=== PATIENT | female | born 1995 | race Two or more races ===

== ENCOUNTER 2019-10-17 16:44 | Inpatient (IN) | payer MEDICAID, OTHER ==
[~2019-10-17] VITALS: Ht 165.1 cm; Wt 53.7 kg
[2019-10-17] MEDS ORDERED: TRAZ-252 PO (19:28)
[2019-10-17] MEDS ORDERED: MIRT-89 PO (19:28)
[2019-10-17] MEDS ORDERED: HALOPERIDOL LACTATE 5 MG/ML VIAL IM ONE (21:00)
[2019-10-17] MEDS ORDERED: DiphenhydrAMINE HCL 50 MG/ML VIAL IM ONE (21:00)
[2019-10-17] MEDS ORDERED: LORazepam 2 MG/ML VIAL IM ONE (21:00)
[2019-10-17 22:34] LABS: BASOPHILS % (AUTO) 0.7 % (0.0-2.0); EOSINOPHILS % (AUTO) 2.6 % (1.0-6.0); HEMATOCRIT 36.8 % (36-46); HEMOGLOBIN 11.7 g/dL (12.0-16.0); LYMPHOCYTES # (AUTO) 2.5 K/uL (1.0-4.8); LYMPHOCYTES % (AUTO) 45.9 % (22.0-44.0); MEAN CORPUSCULAR HEMOGLOBIN 29.8 pg (26.0-34.0); MEAN CORPUSCULAR HGB CONC 31.7 G/dL (31.0-37.0); MEAN CORPUSCULAR VOLUME 94 fL (80-100); MONOCYTES # (AUTO) 0.5 K/uL (0.1-1.0); MONOCYTES % (AUTO) 8.3 % (2.0-9.0); NEUTROPHILS # (AUTO) 2.3 K/uL (1.8-7.7); NEUTROPHILS % (AUTO) 42.5 % (40.0-70.0); PLATELET COUNT (AUTO) 226 K/uL (150-450); RED BLOOD CELL COUNT(AUTO) 3.92 MIL/uL (4.00-5.20); RED CELL DISTRIBUTION WIDTH 15.2 % (11.5-14.5)
[2019-10-17 22:40] LABS: ANION GAP 9 mmol/L (8-16); CARBON DIOXIDE 27 mmol/L (22-29); CHLORIDE 102 mmol/L (98-107); CREATININE 0.78 mg/dL (0.60-1.30); GLOMERULAR FILTR. RATE CALC > 60 mL/min (>60); GLUCOSE,RANDOM 123 mg/dL (70-110); POTASSIUM 3.1 mmol/L (3.5-5.1); SODIUM SERUM 138 mmol/L (136-145); UREA NITROGEN, BLOOD 11 mg/dL (7-18)
[2019-10-17 22:52] LABS: ALANINE AMINOTRANSFERASE 450 U/L (12-78); ALBUMIN 3.3 g/dL (3.4-5.0); ALKALINE PHOSPHATASE 112 U/L (46-116); ASPARTATE AMINOTRANSFERASE 240 U/L (15-37); BILIRUBIN,TOTAL 0.6 mg/dL (0.1-1.0); HCG,QUANTITATIVE < 1 mIU/mL (0-6); TOTAL PROTEIN, SERUM 6.5 g/dL (6.4-8.2)
[2019-10-17] MEDS ORDERED: HALOPERIDOL 5 MG TABLET PO PRN (23:45)
[2019-10-17] MEDS ORDERED: LORazepam 2 MG TABLET PO PRN (23:45)
[2019-10-17] MEDS ORDERED: ZOLPIDEM TARTRATE 10 MG TABLET PO PRN (23:45)
[2019-10-18 03:04] LABS: CHOL/HDL RATIO 3.9 (3.9-5.7); CHOLESTEROL 162 mg/dL (131-200); HDL CHOLESTEROL 42 mg/dL (40-60); LDL CHOL (CALC.) 90 mg/dL (0-130); TRIGLYCERIDES 149 mg/dL (15-150)
[2019-10-18 16:54] VITALS: BP 120/75
[2019-10-18 19:54] VITALS: BP 120/75
[2019-10-18] MEDS ORDERED: PNEUMOCOCCAL VACCINE POLYVALENT 0.5 ML VIAL [PPSV23] IM ONE (20:30)
[2019-10-19 09:31] VITALS: BP 100/55
[2019-10-19] MEDS: FLUoxetine HCL 20 MG CAPSULE PO SCH (12:46)
[2019-10-19] MEDS: OLANZapine 5 MG TABLET PO SCH ×2 (12:46→17:38)
[2019-10-19] MEDS: GABAPENTIN 300 MG CAPSULE PO SCH ×2 (12:46→17:38)
[2019-10-19] MEDS ORDERED: ALBUTEROL SULFATE HFA 90 MCG/PUFF 8 GM INHALER IH PRN (14:45)
[2019-10-19] MEDS ORDERED: LOPERAMIDE HCL 2 MG CAPSULE PO PRN (14:45)
[2019-10-19] MEDS ORDERED: MAG HYDROX/AL HYDROX/SIMETH ES 30 ML SUSPENSION UDCUP PO PRN (14:45)
[2019-10-19] MEDS ORDERED: PETROLATUM,WHITE 28 GM JELLY TP PRN (14:45)
[2019-10-19] MEDS ORDERED: DOCUSATE SODIUM 100 MG CAPSULE PO PRN (14:45)
[2019-10-19] MEDS ORDERED: ONDANSETRON HCL 4 MG TABLET PO PRN (14:45)
[2019-10-19] MEDS ORDERED: CloNIDine HCL 0.1 MG TABLET PO PRN (14:45)
[2019-10-19] MEDS ORDERED: GuaiFENesin/D-METHORPHAN [SUGAR-FREE] 200-20MG/10 ML SYRUP UDCUP PO PRN (14:45)
[2019-10-19] MEDS ORDERED: IBUPROFEN 400 MG TABLET PO PRN (14:45)
[2019-10-19] MEDS ORDERED: NICOTINE 14 MG/24 HOUR PATCH TD PRN (14:45)
[2019-10-19] MEDS ORDERED: MAGNESIUM HYDROXIDE SUSPENSION 30 ML UDCUP PO PRN (14:45)
[2019-10-19] MEDS ORDERED: ACETAMINOPHEN 325 MG TABLET PO PRN (14:45)
[2019-10-19 19:40] VITALS: BP 108/62
[2019-10-19] MEDS ORDERED: POTASSIUM CHLORIDE 20 MEQ ER TABLET PO ONE (20:15)
[2019-10-19] MEDS: TraZODone HCL 50 MG TABLET PO SCH (21:31)
[2019-10-20 09:05] VITALS: BP 122/69
[2019-10-20] MEDS: GABAPENTIN 300 MG CAPSULE PO SCH ×2 (11:43→16:04)
[2019-10-20] MEDS: OLANZapine 5 MG TABLET PO SCH ×2 (11:43→16:04)
[2019-10-20] MEDS: FLUoxetine HCL 20 MG CAPSULE PO SCH (11:43)
[2019-10-20 16:00] VITALS: BP 116/81
[2019-10-20] MEDS: TraZODone HCL 50 MG TABLET PO SCH (21:16)
[2019-10-21 09:24] VITALS: BP 137/78
[2019-10-21] MEDS: GABAPENTIN 300 MG CAPSULE PO SCH ×2 (09:52→16:22)
[2019-10-21] MEDS: OLANZapine 10 MG TABLET PO SCH ×2 (09:52→16:22)
[2019-10-21] MEDS: FLUoxetine HCL 20 MG CAPSULE PO SCH (09:52)
[2019-10-21 16:51] VITALS: BP 119/78
[2019-10-21] MEDS: TraZODone HCL 50 MG TABLET PO SCH (20:31)
[2019-10-22 08:00] VITALS: BP 128/84
[2019-10-22] MEDS ORDERED: GABA-1181 PO (09:26)
[2019-10-22] MEDS ORDERED: OLAN10TA3 PO (09:26)
[2019-10-22] MEDS ORDERED: FLUO-191 PO (09:26)
[2019-10-22] MEDS: OLANZapine 10 MG TABLET PO SCH (09:33)
[2019-10-22] MEDS: GABAPENTIN 300 MG CAPSULE PO SCH (09:33)
[2019-10-22] MEDS: FLUoxetine HCL 20 MG CAPSULE PO SCH (09:33)
== END 2019-10-22 12:40 | DRG 750 ==
LOC: EMS 16:52 → EDBD 10-18 14:37 → 3EI 10-18 14:37
PROVIDERS: ADMIT Psychiatry & Neurology Psychiatry; ATTEND Psychiatry & Neurology Psychiatry
DX: F20.9 Schizophrenia, unspecified (principal); F43.10 Post-traumatic stress disorder, unspecified; F17.200 Nicotine dependence, unspecified, uncomplicated; E87.6 Hypokalemia; D64.9 Anemia, unspecified
CPT/HCPCS: 84132; 99291; G0480

== ENCOUNTER 2020-10-17 18:31 | Inpatient (IN) | payer MEDICAID ==
[~2020-10-17] VITALS: Ht 165.1 cm; Wt 74.5 kg
[~2020-10-17 18:31] MED LIST: OLAN10TA74 PO
[2020-10-17] MEDS ORDERED: ZOLPIDEM TARTRATE 10 MG TABLET PO PRN (20:15)
[2020-10-17] MEDS ORDERED: HALOPERIDOL 5 MG TABLET PO PRN (20:15)
[2020-10-17 20:24] LABS: GLUCOMETER DEV NAME(LOC) POC.BV
[2020-10-17 20:45] VITALS: BP 124/74
[2020-10-17] MEDS: LORazepam 2 MG TABLET PO PRN (21:29)
[2020-10-18 00:28] VITALS: BP 118/70
[2020-10-18 07:11] LABS: BASOPHILS % (AUTO) 0.7 % (0.0-2.0); EOSINOPHILS % (AUTO) 3.9 % (1.0-6.0); HEMATOCRIT 39.8 % (36-46); HEMOGLOBIN 13.3 g/dL (12.0-16.0); LYMPHOCYTES # (AUTO) 2.3 K/uL (1.0-4.8); LYMPHOCYTES % (AUTO) 37.5 % (22.0-44.0); MEAN CORPUSCULAR HGB CONC 33.3 G/dL (31.0-37.0); MEAN CORPUSCULAR VOLUME 90 fL (80-100); MONOCYTES # (AUTO) 0.6 K/uL (0.1-1.0); NEUTROPHILS # (AUTO) 2.9 K/uL (1.8-7.7); NEUTROPHILS % (AUTO) 47.9 % (40.0-70.0); PLATELET COUNT (AUTO) 210 K/uL (150-450); RED BLOOD CELL COUNT(AUTO) 4.42 MIL/uL (4.00-5.20); RED CELL DISTRIBUTION WIDTH 12.7 % (11.5-14.5)
[2020-10-18 07:26] LABS: HEMOGLOBIN A1C 4.9 % (3.8-5.6)
[2020-10-18 07:41] LABS: ALANINE AMINOTRANSFERASE 94 U/L (12-78); ALBUMIN 3.8 g/dL (3.4-5.0); ALKALINE PHOSPHATASE 51 U/L (46-116); ANION GAP 9 mmol/L (8-16); ASPARTATE AMINOTRANSFERASE 140 U/L (15-37); BILIRUBIN,TOTAL 0.8 mg/dL (0.1-1.0); CALCIUM, TOTAL 8.6 mg/dL (8.8-10.5); CARBON DIOXIDE 27 mmol/L (22-29); CHLORIDE 101 mmol/L (98-107); CHOL/HDL RATIO 3.4 (3.9-5.7); CHOLESTEROL 134 mg/dL (131-200); FREE T4 (FREE THYROXINE) 1.92 ng/dL (0.76-1.46); GLOMERULAR FILTR. RATE CALC > 60 mL/min (>60); GLUCOSE,RANDOM 94 mg/dL (70-110); HCG,QUANTITATIVE < 1 mIU/mL (0-6); HDL CHOLESTEROL 40 mg/dL (40-60); LDL CHOL (CALC.) 87 mg/dL (0-130); POTASSIUM 3.5 mmol/L (3.5-5.1); SODIUM SERUM 137 mmol/L (136-145); THYROID STIMULATING HORMONE 0.54 uIU/mL (0.36-3.74); TOTAL PROTEIN, SERUM 6.8 g/dL (6.4-8.2); TRIGLYCERIDES 35 mg/dL (15-150); UREA NITROGEN, BLOOD 7 mg/dL (7-18)
[2020-10-18 08:08] VITALS: BP 99/65
[2020-10-18] MEDS: QUEtiapine FUMARATE 25 MG TABLET PO SCH ×2 (11:58→16:54)
[2020-10-18 16:30] VITALS: BP 104/60
[2020-10-19 04:20] VITALS: BP 101/62
[2020-10-19] MEDS: QUEtiapine FUMARATE 25 MG TABLET PO SCH ×2 (08:17→16:19)
[2020-10-19 08:56] VITALS: BP 91/46
[2020-10-19 14:43] VITALS: BP 118/84
[2020-10-19 16:15] VITALS: BP 104/64
[2020-10-20 01:18] VITALS: BP 102/69
[2020-10-20] MEDS: QUEtiapine FUMARATE 25 MG TABLET PO SCH ×2 (08:01→16:11)
[2020-10-20 08:09] VITALS: BP 103/61
[2020-10-20 16:09] VITALS: BP 98/67
[2020-10-21 06:13] VITALS: BP 110/60
[2020-10-21 08:32] VITALS: BP 102/63
[2020-10-21 08:45] VITALS: BP 112/88
[2020-10-21] MEDS: LORazepam 2 MG TABLET PO PRN (08:57)
[2020-10-21] MEDS: QUEtiapine FUMARATE 25 MG TABLET PO SCH ×2 (08:57→16:08)
[2020-10-21 16:03] VITALS: BP 98/67
[2020-10-22 06:14] VITALS: BP 107/62
[2020-10-22] MEDS: LORazepam 2 MG TABLET PO PRN ×2 (08:15→19:56)
[2020-10-22] MEDS: QUEtiapine FUMARATE 25 MG TABLET PO SCH ×2 (08:15→16:07)
[2020-10-22 08:18] VITALS: BP 110/77
[2020-10-22 16:04] VITALS: BP 105/67
[2020-10-23 01:22] VITALS: BP 101/62
[2020-10-23 08:16] VITALS: BP 100/70
[2020-10-23] MEDS: LORazepam 2 MG TABLET PO PRN ×2 (08:16→13:07)
[2020-10-23] MEDS: QUEtiapine FUMARATE 25 MG TABLET PO SCH ×2 (08:16→16:17)
[2020-10-23 16:21] VITALS: BP 108/75
[2020-10-24 00:30] VITALS: BP 104/64
[2020-10-24] MEDS ORDERED: QUET25TA PO ×2 (07:50→07:51)
[2020-10-24] MEDS: QUEtiapine FUMARATE 25 MG TABLET PO SCH (08:04)
[2020-10-24 08:29] VITALS: BP 116/67
== END 2020-10-24 11:10 | disposition home or self-care (01) | DRG 750 ==
LOC: B3A 20:15
PROVIDERS: ADMIT Psychiatry & Neurology Child & Adolescent Psychiatry; ATTEND Psychiatry & Neurology Child & Adolescent Psychiatry
DX: F25.0 Schizoaffective disorder, bipolar type (principal); I95.9 Hypotension, unspecified; F22 Delusional disorders; R45.851 Suicidal ideations; Z59.0 Homelessness; F10.10 Alcohol abuse, uncomplicated; F12.10 Cannabis abuse, uncomplicated; Z20.822 Contact with and (suspected) exposure to COVID-19; F41.9 Anxiety disorder, unspecified; Z88.8 Allergy status to other drugs, medicaments and biological substances; Z79.899 Other long term (current) drug therapy; Z88.2 Allergy status to sulfonamides
CPT/HCPCS: 80053; 80061; 83036; 84439; 84443; 84702; 85025